=== PATIENT | male | born 1955 | race Caucasian/White ===

== ENCOUNTER 2022-10-05 09:22 | Day surgery (SDC) | payer MEDICARE, BC ==
[2022-10-03 14:24] VITALS: BMI 21.8
[~2022-10-05 09:22] MED LIST: LACTATED RINGERS 1,000 ML IV SCH
[2022-10-05 10:22] VITALS: TEMP 97.7
[2022-10-05] MEDS ORDERED: LACTATED RINGERS 1,000 ML IV ONE (10:22)
[2022-10-05] MEDS ORDERED: PROPOFOL 10 MG/ML 20 ML VIAL IV ONE (10:32)
[2022-10-05] MEDS ORDERED: LIDOCAINE 2% INJ 20 MG/ML (2 ML VIAL) ONE (10:32)
--- NOTE | 2022-10-05 10:48 | P.PCN ---
Date of Procedure: 10/05/22 Operative Findings: Cardioversion Report Performing physician Yogesh Bailon M.D. Procedure performed Successful cardioversion of atrial fibrillation to normal sinus mechanism using 200 J at first attempt Indication Symptomatic atrial fibrillation Complication None Level of sedation The procedure was performed under deep sedation using propofol with FUR DRESSER in the room Procedure description After obtaining an informed consent the patient was brought to the recovery room. Sedation was introduced using propofol with FUR DRESSER in the room. Subsequently the patient cardioverted from atrial fibrillation to normal sinus mechanism using 200 J and first attempt Conclusion Successful cardioversion of atrial fibrillation to normal sinus mechanism using 200 J Postprocedure management Continue the current medical regimen Continue oral anticoagulation Follow-up with the patient
[2022-10-05] MEDS ORDERED: IV FLUID CONTINUATION 1,000 ML IV ONE (11:05)
[2022-10-05 11:11] VITALS: RESP 16
[2022-10-05] MEDS ORDERED: diphenhydrAMINE 50 MG/ML 1 ML VIAL ONE ×2 (11:25→12:03)
[2022-10-05] MEDS ORDERED: diphenhydrAMINE 50 MG/ML 1 ML VIAL IVP ONE ×2 (11:26→12:05)
[2022-10-05] MEDS ORDERED: hydrOXYzine HCL 25 MG TAB PO STA (12:42)
[2022-10-05 12:59] VITALS: BP 163/75; PULSE 65
== END 2022-10-05 13:30 | disposition home or self-care (01) ==
LOC: OR 09:22
PROVIDERS: ATTEND Internal Medicine Interventional Cardiology
DX: I48.0 Paroxysmal atrial fibrillation (principal); I25.10 Atherosclerotic heart disease of native coronary artery without angina pectoris; I42.8 Other cardiomyopathies; I10 Essential (primary) hypertension; I08.3 Combined rheumatic disorders of mitral, aortic and tricuspid valves; E78.5 Hyperlipidemia, unspecified; I71.21 Aneurysm of the ascending aorta, without rupture; F10.20 Alcohol dependence, uncomplicated; F17.210 Nicotine dependence, cigarettes, uncomplicated; Z79.01 Long term (current) use of anticoagulants; Z79.899 Other long term (current) drug therapy
CPT/HCPCS: 92960; 93005; 84132; J1200; J2704; J2001